=== PATIENT | female | born 1985 | race Caucasian/White ===

== ENCOUNTER 2021-07-04 14:55 | Emergency (ER) | payer SELFPAY ==
[~2021-07-04] VITALS: Ht 149.9 cm; Wt 91.0 kg
[2021-07-04] MEDS ORDERED: KETOROLAC 60MG/2ML VIAL IM ONE (17:00)
[2021-07-04] MEDS ORDERED: METHOCARBAMOL 500MG TABLET PO ONE (17:00)
[2021-07-04 17:07] VITALS: BP 102/56
[2021-07-04] MEDS ORDERED: METH-773 MT (17:42)
[2021-07-04] MEDS ORDERED: NAPR-681 MT (17:42)
== END 2021-07-04 18:01 | disposition home or self-care (01) ==
LOC: ER 14:55
DX: S16.1XXA Strain of muscle, fascia and tendon at neck level, initial encounter (principal); Z98.890 Other specified postprocedural states; V43.62XA Car passenger injured in collision with other type car in traffic accident, initial encounter; Y93.89 Activity, other specified; Y92.488 Other paved roadways as the place of occurrence of the external cause
CPT/HCPCS: 81025; 96372; 99283; J1885; Z7610

== ENCOUNTER 2021-10-19 08:27 | Emergency (ER) | payer MEDICAID ==
[~2021-10-19] VITALS: Ht 149.9 cm; Wt 82.0 kg
[~2021-10-19 08:27] MED LIST: METH-773 MT; NAPR-681 MT
[2021-10-19 08:45] VITALS: BP 116/80
== END 2021-10-19 10:10 | disposition home or self-care (01) ==
LOC: ER 08:27
DX: R51.9 Headache, unspecified (principal); E03.9 Hypothyroidism, unspecified
CPT/HCPCS: 99281

== ENCOUNTER 2022-09-16 18:55 | Emergency (ER) | payer MEDICAID ==
[~2022-09-16] VITALS: Ht 165.1 cm; Wt 91.0 kg
[2022-09-16] MEDS ORDERED: TETANUS, DIPHTHERIA, PERTUSSIS VAC/PF 0.5ML (>10YR OLD) IM ONE ×2 (20:15→22:45)
[2022-09-16] MEDS ORDERED: BACITRACIN ZINC OINT UDPKT TOP ONE (20:45)
[2022-09-16 21:30] VITALS: BP 109/64
[2022-09-16] MEDS ORDERED: BACITRACIN ZINC OINT UDPKT TOP SCH (22:45)
[2022-09-16] MEDS ORDERED: BO1 TP (22:51)
== END 2022-09-16 23:41 | disposition home or self-care (01) ==
LOC: ER 19:25
DX: T25.221A Burn of second degree of right foot, initial encounter (principal); T25.222A Burn of second degree of left foot, initial encounter; X12.XXXA Contact with other hot fluids, initial encounter; Y93.89 Activity, other specified; Y92.9 Unspecified place or not applicable
CPT/HCPCS: 90471; 90715; 99283; Z7610

== ENCOUNTER 2022-10-26 13:21 | Emergency (ER) | payer MEDICAID ==
[~2022-10-26] VITALS: Ht 149.9 cm; Wt 82.0 kg
[~2022-10-26 13:21] MED LIST changes: +BO1 TP
[2022-10-26 13:40] VITALS: BP 11/55
== END 2022-10-26 15:06 | disposition left against medical advice (07) ==
LOC: ER 13:21
DX: Z53.21 Procedure and treatment not carried out due to patient leaving prior to being seen by health care provider (principal); E05.90 Thyrotoxicosis, unspecified without thyrotoxic crisis or storm